=== PATIENT | female | born 1955 | race African-American/Black ===

== ENCOUNTER 2018-12-26 14:30 | Outpatient (CLI) | payer MEDICARE ==
--- NOTE | 2018-12-26 16:02 | MRI ---
MRI LUMBAR SPINE NONCONTRAST: HISTORY: Lumbar spinal stenosis. Low back pain with radiation down the right leg for years. Worsening symptoms . COMPARISON: None FINDINGS: Appropriate T1 marrow signal intensity of the lumbar vertebra. Lumbar spine vertebral body height is maintained. No significant STIR hyperintensity to suggest vertebral body edema or ligamentous injury. There does appear to be edematous change involving the right facet joint at L5-S1, likely due to mechanical stresses. There is a questionable incomplete right pars defect at L5 with abnormal edema involving th e facet and possibly pedicle. The overall AP diameter is narrowed secondary to congenitally foreshortened pedicles Appropriate signal intensity in the visualized paraspinal muscles and solid organs. Conus medullaris terminates at the inferior aspect of L1. T12-L1:Generalized disc bulge with mild central canal stenosis. Mild bilateral foraminal narrowing L1-L2:Adequate disc hydration. Generalized disc bulge, ligamentum flavum thickening, and facet hypert rophy result in mild stenosis. Mild bilateral neural foraminal narrowing. L2-L3:Adequate disc hydration. No significant loss of disc space height. Generalized disc bulge, liga mentum flavum thickening, and facet hypertrophy result in moderate central canal stenosis. Mild bilateral foraminal narrowing. L3-L4:Desiccation with mild loss of disc space height. Generalized disc bulge, ligamentum flavum thic kening, and facet hypertrophy result in moderate central canal stenosis. Right neural foramen is patent. Mild left foraminal narrowing. L4-L5:Desiccation with mild to moderate loss of disc space height. Generalized disc bulge, ligamentum flavum thickening, and facet hypertrophy result in mild central canal stenosis. Narrowing of both subarticular zones without obscuration of either traversing L5 nerve root. Moderate right and mild to moderate left foraminal narrowing. L5-S1:Adequate disc space height. However, there is disc desiccation. There is a generalized disc bul ge with a right subarticular component. There is ligamentum flavum thickening and facet hypertrophy. Moderate central canal stenosis. There is obscuration of the traversing right S1 nerve r oot secondary to disc material and to a lesser extent facet hypertrophy. Left subarticular zone is patent. There is severe right and moderate to severe left foraminal narrowing. IMPRESSION: 1. Degenerative changes of the lumbar spine as described above. There is mild right neural foraminal narrowing at L4-L5. 2. Moderate central canal stenosis at L2-L3 and L4-L5. There is obscuration of the traversing right S 1 nerve root secondary to disc material and facet hypertrophy with resultant narrowing of the right subarticular zone at L5-S1. Questionable pars defect on the right at L5. 3. Severe right and moderate to severe left foraminal narrowing at L5-S1. 4. Decreased AP diameter of the central spinal canal due to congenitally foreshortened pedicles Transcribed Date/Time: 12/26/2018 4:30 PM
--- NOTE | 2018-12-26 16:14 | RAD ---
XR Lumbar Spine Min 4 View: 12/26/2018 12:00 AM CLINICAL INDICATION: Spinal stenosis. Neurogenic claudication. COMPARISON: None. FINDINGS: Fracture:No fracture. Arthropathy:Moderate multilevel degenerative change of lumbar spine. Neutral lateral view reveals no significant listhesis. Flexion and extension lateral imaging demonstr ates no evidence of abnormal translational motion. Incidental findings: Scattered surgical clips. IMPRESSION: 1. Moderate degenerative change of lumbar spine. 2. No abnormal translational motion.
== END 2018-12-26 14:31 | disposition home or self-care (01) ==
LOC: BICMRI 14:30
PROVIDERS: ATTEND Nurse Practitioner Family
DX: M48.062 Spinal stenosis, lumbar region with neurogenic claudication (principal); M48.07 Spinal stenosis, lumbosacral region; M47.817 Spondylosis without myelopathy or radiculopathy, lumbosacral region; M47.816 Spondylosis without myelopathy or radiculopathy, lumbar region
CPT/HCPCS: 72110; 72148

== ENCOUNTER 2019-08-22 09:20 | Emergency (ER) | payer MEDICARE ==
[2019-08-22] MEDS ORDERED: Ketorolac Tromethamine 60 MG/2 ML VIAL ONE (12:07)
[2019-08-22] MEDS ORDERED: Cyclobenzaprine 10 MG TAB ONE (12:07)
[2019-08-22] MEDS ORDERED: Diazepam 5 MG TAB ONE (13:20)
== END 2019-08-22 13:30 | disposition home or self-care (01) ==
LOC: ERS 09:20
DX: M54.41 Lumbago with sciatica, right side (principal); G89.29 Other chronic pain; I10 Essential (primary) hypertension; F41.9 Anxiety disorder, unspecified
CPT/HCPCS: 96372; 99283; J1885

== ENCOUNTER 2019-11-13 10:00 | Inpatient (IN) | payer MEDICARE, OTHER ==
[2019-12-08 08:46] VITALS: BMI 37.2
[2019-12-11] MEDS ORDERED: Thrombin 5000 UNITS/5 ML VIAL ONE (06:12)
[2019-12-11] MEDS ORDERED: EPINEPHrine 1 MG/ML AMP ONE (06:12)
[2019-12-11] MEDS ORDERED: Bupivacaine PF 0.5% 30 ML VIAL ONE (06:12)
[2019-12-11] MEDS ORDERED: Levofloxacin 500 mg/D5W 100 ml Premix Bag ONE (06:17)
[2019-12-11] MEDS ORDERED: Clindamycin/D5W 900 mg/50 ml Premix Bag ONE (06:18)
[2019-12-11] MEDS ORDERED: Albumin 5% 500 ML ONE (06:41)
[2019-12-11] MEDS ORDERED: Fentanyl 250 MCG/5 ML VIAL ONE (06:41)
[2019-12-11] MEDS ORDERED: Ketamine 50 MG/ML (10ML VIAL) ONE (06:42)
[2019-12-11 11:08] LABS: Hemoglobin 9.8 g/dL (12.0-16.0); Platelet Count 175 thou/uL (130-400)
[2019-12-11] MEDS ORDERED: EPHEDRINE 25 MG/5 ML SYRINGE ONE (12:38)
[2019-12-11] MEDS ORDERED: PHENYLEPHRINE-NS 100 MCG/ML 10 ML SYRINGE ONE (12:38)
[2019-12-11] MEDS ORDERED: Glycopyrrolate 0.2 MG/ML 5 ML SYRINGE ONE (12:38)
[2019-12-11] MEDS ORDERED: Rocuronium Bromide 10 MG/ML (10ML VIAL) ONE (12:38)
[2019-12-11] MEDS ORDERED: Ondansetron PF 4 MG/2 ML Vial ONE (12:38)
[2019-12-11] MEDS ORDERED: PROPOFOL 200 MG/20 ML VIAL ONE (12:38)
[2019-12-11] MEDS ORDERED: Dexamethasone 20 MG/5 ML VIAL ONE (12:38)
[2019-12-11] MEDS ORDERED: Lidocaine 1% PF 5 ML VIAL ONE ×2 (12:38)
[2019-12-11] MEDS ORDERED: Ondansetron HCl/PF 4 MG/2 ML Vial IVP PRN (13:02)
[2019-12-11] MEDS ORDERED: Promethazine HCl 25 MG/ML VIAL IM PRN (13:02)
[2019-12-11] MEDS ORDERED: Promethazine HCl 25 MG/ML VIAL SLOW IVP PRN (13:02)
[2019-12-11] MEDS ORDERED: PACU-Morphine 4MG/ML VIAL SLOW IVP PRN (13:02)
[2019-12-11] MEDS ORDERED: HYDROmorphone 2 MG/ML VIAL SLOW IVP PRN (13:02)
[2019-12-11] MEDS ORDERED: Morphine Sulfate 2 MG/ML SYRINGE SLOW IVP PRN (13:02)
[2019-12-11] MEDS ORDERED: diphenhydrAMINE 25 MG CAP PO PRN (13:42)
[2019-12-11] MEDS ORDERED: Mag-Al 1200 mg/1200 mg/30 ML UDCUP PO PRN (13:42)
[2019-12-11] MEDS ORDERED: Promethazine 25 MG TAB PO PRN (13:42)
[2019-12-11] MEDS ORDERED: Prochlorperazine 10 MG/2 ML VIAL IM PRN (13:42)
[2019-12-11] MEDS ORDERED: tiZANidine HCl 4 MG TAB PO PRN (13:42)
[2019-12-11] MEDS ORDERED: Fentanyl 100 MCG/2 ML VIAL SLOW IVP PRN ×2 (13:52→13:53)
[2019-12-11] MEDS: Sodium Chloride 0.9% 1,000 ML IV SCH (15:23)
[2019-12-11] MEDS: Clindamycin/D5W 900 MG in Premix Bag 1 BAG IVPB SCH ×2 (15:24→22:17)
[2019-12-11] MEDS: Gabapentin 300 MG CAP PO SCH ×2 (15:27→21:21)
[2019-12-11] MEDS: Cyclobenzaprine 10 MG TAB PO PRN (15:27)
[2019-12-11] MEDS: Scopolamine 1.5 mg/72 hour Patch TD SCH (15:29)
--- NOTE | 2019-12-11 21:14 | OP ---
DATE OF PROCEDURE: 12/11/2019 [employer]ER: Ab Hurd PA-C PREOPERATIVE INDICATION: Treat pain, prevent neurological deterioration. PREOPERATIVE DIAGNOSES: Multilevel lumbar stenosis; far-lateral disk herniation, right L4-L5; far-lateral disk herniation with foraminal collapse at L5-S1; right L4 and L5 radiculopathies. POSTOPERATIVE DIAGNOSES: Multilevel lumbar stenosis; far-lateral disk herniation, right L4-L5; far-lateral disk herniation with foraminal collapse at L5-S1; right L4 and L5 radiculopathies. OPERATIVE PROCEDURE: Decompressive laminectomy, medial facetectomy, foraminotomy at L2-L3, L3-L4, L4-L5, L5-S1; far-lateral microdiskectomy, L4-L5; complete facetectomy, right L5-S1; transforaminal lumbar interbody arthrodesis; placement of intervertebral biomechanical device; pedicle screw and adam instrumentation, L5-S1; posterolateral arthrodesis, L5-S1; local morselized autograft, morselized allograft, operative microscope. PREOPERATIVE MEDICATION: Ancef 2 g IV. DRAIN NUMBER: 1. DRINK TYPE: 10-[place] Lenny. DESCRIPTION OF PROCEDURE: The patient was brought to the operating room. General endotracheal anesthesia was induced. The patient was positioned prone on the Blaze frame with the chest and hips supported by the appropriate attachments of the Blaze frame. A lateral fluoro radiograph was used to plan our incision. The lumbar skin was sterilely prepped and draped. We opened with a 10 blade knife and controlled bleeding with bipolar and monopolar cautery. We used monopolar cautery to dissect through subcutaneous tissues to thoracodorsal fascia. We incised the fascia in the midline and reflected the paraspinal muscles off the spinous process and lamina from L2-S1. A lateral fluoro radiograph to confirm the levels upon which we were operating. We then used an Adson rongeur to remove the spinous processes from L2 to the top of the sacrum. Kerrison rongeurs were used to fashion a laminectomy. In order to decompress the lateral recesses and foramina, we had performed medial facetectomies and foraminotomies at each of the levels. The L4 nerve root on the right side was compressed outside the foramen as was the L5 nerve root, both inside and lateral to the foramen. We brought the operative microscope in the field. Under microscopic magnification using microsurgical techniques, we carefully performed a far-lateral microdiskectomy at L4-L5. We widely open the foramen. We found a disk osteophyte complex on the ventral inferior surface of the L4 nerve root and reduced by performing microdiskectomy and using pushing curettes moved out of the way. Christianson ball probe could easily move from the foramen all the way to the paraspinal space without impingement after the decompression. We turned our attention to the L5-S1 facet. There performed a complete facetectomy in order to access the foramen. We decompressed the L5 nerve root by performing wide facetectomy and foraminotomy. We accessed the intervertebral space through the facetectomy defect. We incised the disk space and removed disk contents using curettes and rongeur. Using a rectangular bone rasp to be measured the height of the interspace to 11 mm, an 11 mm PEEK graft was brought into the field, which was loaded with demineralized bone matrix and morselized autograft. The autograft had been obtained during our laminectomies. When soft tissue was removed from the laminectomy bone, it was morselized into demineralized bone matrix to form our fusion substrate. The substrate in the center of the PEEK graft, the graft was advanced into the interspace under radiographic guidance to the appropriate depth. We turned our attention to pedicle screw instrumentation. Using bony anatomic landmarks, palpation of the medial portion of the pedicles and lateral fluoro radiographs as our guide, we chose entry points for pedicle screws. We drilled out our entry points and then used a bone awl to advance through the pedicles into the vertebral bodies. We tapped each trajectory with a threaded tap and then probed them. These were completely encased in bone. We placed pedicle screws at L5 and S1 bilaterally. We generated a 360-degree image set with our isocentric C-arm confirming adequate positioning of her pedicle screw instrumentation. We then brought into the field and put them into the screw heads. We tightened caps over the rods compressing across the interspace before final tightening. Using a torque/counter-torque mechanism, ensured adequate tightness of the caps. We decorticated the transverse processes of L5 and the sacral ala bilaterally. Over the decorticated bone, we left demineralized bone matrix and morselized autograft as a posterior lateral fusion substrate. This posterolateral fusion was done after copious amounts of irrigation in the posterolateral space. We irrigated the center of the wound once again. We treated the wound with vancomycin powder and tunneled the drain inferiorly through a separate stab incision. We closed the wound in anatomic layers with a drain. We applied sterile dressing. This was a clean case, no contamination. Job ID: [id number]
[2019-12-11] MEDS: Fentanyl 100 MCG/2 ML VIAL SLOW IVP PRN (21:20)
[2019-12-11] MEDS: traMADol HCl 50 MG TAB PO SCH (21:21)
[2019-12-11] MEDS: Potassium Chloride 10 MEQ TAB PO SCH (21:21)
[2019-12-11] MEDS: Furosemide 40 MG TAB PO SCH (21:21)
[2019-12-11] MEDS: clonazePAM 1 MG TAB PO PRN (21:27)
[2019-12-11] MEDS: Propranolol 10 MG TAB PO SCH (21:27)
[2019-12-12] MEDS: Sodium Chloride 0.9% 1,000 ML IV SCH ×3 (01:59→22:00)
[2019-12-12] MEDS: Fentanyl 100 MCG/2 ML VIAL SLOW IVP PRN ×5 (02:46→14:54)
[2019-12-12] MEDS: Cyclobenzaprine 10 MG TAB PO PRN ×2 (02:47→11:50)
[2019-12-12 05:19] LABS: #Lymphocytes 1.3 thou/uL (1.20-3.40); #Monocytes 0.6 thou/uL (0.11-0.59); #Neutrophils 7.5 thou/uL (1.40-6.50); %Basophils 0.3 % (0.0-1.0); %Lymphocytes 13.8 % (21.0-51.0); %Monocytes 6.6 % (0.0-10.0); %Neutrophils 79.3 % (42.0-75.0); Hemoglobin 10.1 g/dL (12.0-16.0); Mean Corpuscular HGB CONC 32.1 g/dL (32.0-36.0); Mean Corpuscular Hemoglobin 29.1 pg (27.0-31.0); Mean Corpuscular Volume 90.5 fL (78.0-98.0); Platelet Count 177 thou/uL (130-400); RBC Distribution Width 12.1 % (11.5-14.5); Red Blood Cell (RBC) Count 3.48 mill/uL (4.20-5.40); White Blood Cell (WBC) Count 9.5 thou/uL (4.8-10.8)
[2019-12-12] MEDS: Clindamycin/D5W 900 MG in Premix Bag 1 BAG IVPB SCH ×3 (06:02→22:45)
[2019-12-12] MEDS: Tamsulosin HCl 0.4 MG CAP PO SCH (06:02)
--- NOTE | 2019-12-12 07:00 | PRG ---
DATE OF SERVICE: 12/12/2019 Ms. Aleks Huang is one day out from long segment lumbar decompression with a L5-S1 TLIF for combination of severe canal stenosis with neurogenic claudication and some severe foraminal stenosis with radiculopathy. Since surgery, the right leg pain has gone. She is very happy about that. She has some positioning, soreness in her chest and elbows, and some irritation of the skin on her face. Otherwise, she feels fairly well. She anticipates need for inpatient rehabilitation because she lives at home. Overnight, her vital signs that I see recorded on the computer do not include a fever. Her blood pressures have been in the 90s to 120s. Her neurological examination is normal. We will consult Case Management to help with placement in inpatient rehab. She is going to complete physical therapy while she is here in the hospital. If she does reach safety and independence for activities of daily living, she could be discharged home, but otherwise inpatient rehabilitation stay might be a good idea. Job ID: [id number]
[2019-12-12] MEDS: Gabapentin 300 MG CAP PO SCH ×3 (09:45→21:54)
[2019-12-12] MEDS: Propranolol 10 MG TAB PO SCH ×2 (09:45→21:50)
[2019-12-12] MEDS: Potassium Chloride 10 MEQ TAB PO SCH ×2 (09:45→21:46)
[2019-12-12] MEDS: traMADol HCl 50 MG TAB PO SCH ×2 (09:46→21:47)
[2019-12-12] MEDS: Metolazone 5 MG TAB PO SCH (09:46)
[2019-12-12] MEDS: Furosemide 40 MG TAB PO SCH ×2 (09:46→21:52)
[2019-12-12] MEDS: Acetaminophen 325 MG TAB PO PRN ×2 (18:32→22:45)
[2019-12-12] MEDS: Fluticasone Propionate Nasal Spray 16 gm Bottle NASAL SCH (19:34)
[2019-12-12] MEDS: clonazePAM 1 MG TAB PO PRN (23:17)
[2019-12-13] MEDS: Clindamycin/D5W 900 MG in Premix Bag 1 BAG IVPB SCH ×2 (05:35→14:53)
[2019-12-13] MEDS: Tamsulosin HCl 0.4 MG CAP PO SCH (05:37)
[2019-12-13] MEDS: Sodium Chloride 0.9% 1,000 ML IV SCH ×2 (05:50→14:54)
[2019-12-13] MEDS: Propranolol 10 MG TAB PO SCH ×2 (08:34→21:17)
[2019-12-13] MEDS: Aspirin Chewable 81 MG TAB PO SCH (08:34)
[2019-12-13] MEDS: Stress 600 With Zinc 1 TAB PO SCH (08:34)
[2019-12-13] MEDS: Potassium Chloride 10 MEQ TAB PO SCH ×2 (08:34→21:16)
[2019-12-13] MEDS: Gabapentin 300 MG CAP PO SCH ×3 (08:34→21:14)
[2019-12-13] MEDS: Multivitamin W/ Minerals 1 TAB PO SCH (08:35)
[2019-12-13] MEDS: Cyclobenzaprine 10 MG TAB PO PRN (08:35)
[2019-12-13] MEDS: Furosemide 40 MG TAB PO SCH ×2 (08:36→14:53)
[2019-12-13] MEDS: traMADol HCl 50 MG TAB PO SCH ×2 (08:36→21:15)
[2019-12-13] MEDS: Ondansetron PF 4 MG/2 ML Vial IVP PRN (09:20)
--- NOTE | 2019-12-13 09:25 | PRG ---
DATE OF SERVICE: 12/13/2019 Ms. Aleks Huang is 2 days out from decompression fusion of lumbar spine. She had a reasonably good day yesterday, worked with physical therapy. This morning her temperatures reached a maximum of 100.8 degrees Fahrenheit. Her blood pressure has been in the 90s to 100. Ms. Aleks Huang has excellent strength in the lower extremities. For fever workup, we will get a urinalysis and ultrasound of lower extremities. We will encourage volume incentive spirometry 10 times per hour and mobilization. We are awaiting insurance approval for rehab placement, which can hopefully be done this weekend or on Sunday. Job ID: [id number]
[2019-12-13] MEDS: Fluticasone Propionate Nasal Spray 16 gm Bottle NASAL SCH (10:46)
--- NOTE | 2019-12-13 11:43 | ULT ---
ULTRASOUND DOPPLER DUPLEX VENOUS BILATERAL LOWER EXTREMITIES: DATE: 12/13/2019 HISTORY: 64-year-old female with bilateral lower extremity pain TECHNIQUE: Grayscale, color-flow, and spectral analysis, of major veins of bilateral lower extremities. FINDINGS: There is demonstration of blood flow with normal compressibility, of the bilateral common femoral, pr ofunda femoral, greater saphenous, femoral, popliteal, and posterior tibial, veins. IMPRESSION: Negative. No deep venous thrombosis of bilateral lower extremities.
[2019-12-13] MEDS: Acetaminophen 325 MG TAB PO PRN ×2 (12:24→21:15)
[2019-12-13] MEDS: traMADol HCl 50 MG TAB PO PRN (12:25)
[2019-12-13] MEDS: Milk Of Magnesia 30 ML UDCUP PO PRN (12:26)
[2019-12-13] MEDS: clonazePAM 1 MG TAB PO PRN (21:16)
[2019-12-14] MEDS: Sodium Chloride 0.9% 1,000 ML IV SCH ×3 (02:58→23:10)
[2019-12-14] MEDS: Acetaminophen 325 MG TAB PO PRN ×2 (06:23→17:08)
[2019-12-14] MEDS: traMADol HCl 50 MG TAB PO PRN (06:24)
[2019-12-14] MEDS: Tamsulosin HCl 0.4 MG CAP PO SCH (06:24)
[2019-12-14] MEDS: Fluticasone Propionate Nasal Spray 16 gm Bottle NASAL SCH (08:54)
[2019-12-14] MEDS: Multivitamin W/ Minerals 1 TAB PO SCH (08:55)
[2019-12-14] MEDS: Potassium Chloride 10 MEQ TAB PO SCH ×2 (08:55→20:12)
[2019-12-14] MEDS: Aspirin Chewable 81 MG TAB PO SCH (08:55)
[2019-12-14] MEDS: Stress 600 With Zinc 1 TAB PO SCH (08:55)
[2019-12-14] MEDS: Gabapentin 300 MG CAP PO SCH ×3 (08:55→20:12)
[2019-12-14] MEDS: Cyclobenzaprine 10 MG TAB PO PRN (08:56)
[2019-12-14] MEDS: Cyanocobalamin (Vitamin B-12) 1,000 MCG TAB PO SCH (08:56)
[2019-12-14] MEDS: Furosemide 40 MG TAB PO SCH ×2 (08:56→14:49)
[2019-12-14] MEDS: traMADol HCl 50 MG TAB PO SCH ×2 (08:57→20:11)
[2019-12-14] MEDS: Propranolol 10 MG TAB PO SCH ×2 (08:58→20:11)
--- NOTE | 2019-12-14 09:30 | PRG ---
DATE OF SERVICE: 12/14/2019 I saw Ms. Aleks Huang on rounds this morning. She has some electrical sensations in her legs with the pain that radiated from her back down to her feet. With walking it is gone. She is happy with the results of the operation thus far. She wants her shocking sensations to go away as well. Overnight, I see a high temperature of 100.1 degrees Fahrenheit. Her urinalysis is pending. On neurological examination, there is very good strength in the lower extremities. She is ambulatory. I believe Ms. Aleks Huang has good decompression of her lower lumbar nerve roots. Many of the chronically compressed roots are now waking and firing abnormally as they recover from chronic compression. Her motor strength is quite good and she is going to need some help to become independent for activities of daily living. Inpatient rehabilitation will provide her that service and once she has, she can be discharged from that facility home. Job ID: [id number]
[2019-12-14 11:09] LABS: #Eosinphils 0.3 thou/uL (0.0-0.7); #Lymphocytes 1.6 thou/uL (1.20-3.40); #Monocytes 0.5 thou/uL (0.11-0.59); #Neutrophils 4.6 thou/uL (1.40-6.50); %Basophils 0.3 % (0.0-1.0); %Eosinophils 4.5 % (0.0-10.0); %Lymphocytes 22.8 % (21.0-51.0); %Monocytes 7.6 % (0.0-10.0); %Neutrophils 64.8 % (42.0-75.0); Hemoglobin 9.8 g/dL (12.0-16.0); Mean Corpuscular HGB CONC 32.4 g/dL (32.0-36.0); Mean Corpuscular Hemoglobin 29.5 pg (27.0-31.0); Mean Corpuscular Volume 91.2 fL (78.0-98.0); Mean Platelet Volume 8.1 fL (7.4-10.4); Platelet Count 155 thou/uL (130-400); RBC Distribution Width 12.1 % (11.5-14.5); Red Blood Cell (RBC) Count 3.33 mill/uL (4.20-5.40); White Blood Cell (WBC) Count 7.1 thou/uL (4.8-10.8)
[2019-12-14] MEDS: Scopolamine 1.5 mg/72 hour Patch TD SCH (14:50)
[2019-12-14] MEDS: Milk Of Magnesia 30 ML UDCUP PO PRN (15:00)
[2019-12-14] MEDS: clonazePAM 1 MG TAB PO PRN (20:14)
[2019-12-15] MEDS: Cyclobenzaprine 10 MG TAB PO PRN (03:59)
[2019-12-15] MEDS: traMADol HCl 50 MG TAB PO PRN ×2 (04:00→14:13)
[2019-12-15] MEDS: Acetaminophen 325 MG TAB PO PRN ×3 (04:00→14:13)
[2019-12-15] MEDS: Ondansetron PF 4 MG/2 ML Vial IVP PRN (04:00)
[2019-12-15] MEDS: Tamsulosin HCl 0.4 MG CAP PO SCH (06:10)
--- NOTE | 2019-12-15 07:21 | PRG ---
DATE OF SERVICE: 12/15/2019 I saw Ms. Aleks Huang on rounds today. She is 4 days out from decompression and fusion of lumbar spine. She noticed yesterday while walking that the pain in her legs slightly more than the previous day. It is affecting the right leg, both in the groin and medial thigh, and some in the back of the leg, on the left side is the calf. She can still participate in her therapy and walk. She got out of bed, made it to the hallway once yesterday. Overnight, she has maximum temperature of 100.8 degrees Fahrenheit. Blood pressures have been in the 90s to 110s. While she is lying flat in bed, she has good strength in the hip flexors, quadriceps, anterior tib, EHL, and gastroc. She has sensation throughout. PLAN: My plan today is be more aggressive with therapy. I would like her walking 6 to 10 times in the hallway per day. As soon as inpatient rehabilitation can accept her, she can be moved. Job ID: [id number]
[2019-12-15] MEDS: Sodium Chloride 0.9% 1,000 ML IV SCH ×2 (08:24→14:30)
[2019-12-15] MEDS: Furosemide 40 MG TAB PO SCH ×2 (08:32→14:12)
[2019-12-15] MEDS: Metolazone 5 MG TAB PO SCH (08:33)
[2019-12-15] MEDS: Multivitamin W/ Minerals 1 TAB PO SCH (08:33)
[2019-12-15] MEDS: Aspirin Chewable 81 MG TAB PO SCH (08:33)
[2019-12-15] MEDS: Cyanocobalamin (Vitamin B-12) 1,000 MCG TAB PO SCH (08:33)
[2019-12-15] MEDS: Potassium Chloride 10 MEQ TAB PO SCH (08:33)
[2019-12-15] MEDS: Stress 600 With Zinc 1 TAB PO SCH (08:33)
[2019-12-15] MEDS: Gabapentin 300 MG CAP PO SCH ×2 (08:33→14:12)
[2019-12-15] MEDS: Propranolol 10 MG TAB PO SCH (08:33)
[2019-12-15] MEDS: traMADol HCl 50 MG TAB PO SCH (08:34)
[2019-12-15] MEDS: Fluticasone Propionate Nasal Spray 16 gm Bottle NASAL SCH (08:35)
[2019-12-15 10:22] LABS: Bilirubin Negative (Negative); Blood, Urine Negative (Negative); Clarity Turbid (Clear); Glucose, Urine (Dipstick) Normal (Negative); Leukocyte 500 Leu/uL (Negative); Nitrite Negative (Negative); Protein, Urine (Dipstick) Negative (Neg-Trace); Urobilinogen Normal mg/dL (Less than 2); WBC/HPF Greater than 50 HPF (0-3)
[2019-12-15 10:36] LABS: Bacteria/HPF 1+ HPF (None Seen)
[2019-12-15 12:56] LABS: Calcium 8.8 mg/dL (7.8-10.44); Chloride 86 mmol/L (98-107); Sodium 134 mmol/L (136-145)
[2019-12-15 12:57] LABS: Glucose 114 mg/dL (80-115)
[2019-12-15 13:00] LABS: Calc. Creatinine Clearance 105 mL/min (70-130); Estimated GFR-MDRD 87
[2019-12-15 13:01] LABS: BUN (Urea Nitrogen) 9 mg/dL (9.8-20.1)
[2019-12-15 13:09] LABS: Carbon Dioxide 34 mmol/L (23-31)
[2019-12-15 13:19] LABS: Potassium 2.7 mmol/L (3.5-5.1)
[2019-12-15 13:20] LABS: Anion Gap 17 mmol/L (10-20)
[2019-12-15] MEDS ORDERED: Potassium Citrate 10 MEQ TAB PO SCH ×2 (14:30→17:00)
[2019-12-15 16:06] VITALS: BP 96/61; TEMP 99.1
[2019-12-15] MEDS ORDERED: Potassium Chloride 20 MEQ TAB PO SCH (16:15)
[2019-12-15] MEDS ORDERED: Sulfameth/Trimethoprim DS 800-160mg TAB PO SCH (21:00)
--- NOTE | 2019-12-16 11:13 | DIS ---
DATE OF ADMISSION: 12/11/2019 DATE OF DISCHARGE: 12/15/2019 HOSPITAL COURSE: Ms. Fink is a 64-year-old female, four days out from decompression and fusion of her lumbar spine. Following her surgery, she was transitioned to the med/surg floor, where her pain has been well controlled with p.o. medications and she has tolerated a regular diet and has been voiding appropriately. She is otherwise doing well and ambulating with the assistance of physical therapy in the hallways and she feels like she is ready to go to inpatient rehabilitation. During the course of stay, her temperature has been up to 100.8 degrees Fahrenheit. Nurses tell me that this is because she uses a lot of blankets and that is not really her temperature. Blood pressures have been in the 90s to 110s. PHYSICAL EXAMINATION: GENERAL: Today, she is awake and alert, in no acute distress. EXTREMITIES: She has free active range of motion of all her extremities. No focal motor weaknesses. No reflex asymmetry. Her incision is clean, dry, and intact. Plan is to continue mobilizing and ambulating with therapy. She should be able to go to inpatient rehab today. CONDITION ON DISCHARGE: The patient had no emergencies. Condition was stable for discharge to inpatient rehab. MEDICATIONS: Home going medications were reviewed. FOLLOWUP: Followup arrangements made by our staff development coordinator in the clinic and call to the patient. ACTIVITIES: Restrictions were reviewed in person. Wound care showers are acceptable. The patient should pat the incision dry, but not submerge it under the surface of the body of water for 2 months. Job ID: [id number]
== END 2019-12-15 17:25 | disposition swing bed (61) | DRG 455 ==
LOC: EDSTATUS 11-17 10:00 → SURG A 12-11 05:45
PROVIDERS: ADMIT Neurological Surgery; ATTEND Neurological Surgery
PROC: 0SG30AJ Fusion of Lumbosacral Joint with Interbody Fusion Device, Posterior Approach, Anterior Column, Open Approach (ICD-10-PCS; principal; 2019-12-11)
PROC: 0SG0071 Fusion of Lumbar Vertebral Joint with Autologous Tissue Substitute, Posterior Approach, Posterior Column, Open Approach (ICD-10-PCS; 2019-12-11)
PROC: 0SB20ZZ Excision of Lumbar Vertebral Disc, Open Approach (ICD-10-PCS; 2019-12-11)
PROC: 01NB0ZZ Release Lumbar Nerve, Open Approach (ICD-10-PCS; 2019-12-11)
PROC: 01NR0ZZ Release Sacral Nerve, Open Approach (ICD-10-PCS; 2019-12-11)
DX: M51.16 Intervertebral disc disorders with radiculopathy, lumbar region (principal); M43.16 Spondylolisthesis, lumbar region; M48.062 Spinal stenosis, lumbar region with neurogenic claudication; Z11.59 Encounter for screening for other viral diseases; I10 Essential (primary) hypertension; R13.10 Dysphagia, unspecified; M19.90 Unspecified osteoarthritis, unspecified site; M81.0 Age-related osteoporosis without current pathological fracture; G47.00 Insomnia, unspecified; G89.29 Other chronic pain; J30.2 Other seasonal allergic rhinitis; E55.9 Vitamin D deficiency, unspecified; Z79.82 Long term (current) use of aspirin; Z79.899 Other long term (current) drug therapy; Z90.710 Acquired absence of both cervix and uterus; Z88.0 Allergy status to penicillin; Z88.5 Allergy status to narcotic agent
CPT/HCPCS: 36415; 36430; 76000; 80048; 81001; 85014; 85018; 85025; 85027; 85049; 85610; 85730; 86850; 86900; 86901; 87086; 87635; 93005; 93970; C1713; C1768; J0171; J1100; J1956; J2001; J2405; J2704; J3010; J3370; J3490; P9016; P9045; S0020; U0003

== ENCOUNTER 2019-12-08 06:06 | Outpatient (CLI) | payer MEDICARE, OTHER ==
[2019-12-08 10:41] LABS: Hemoglobin 12.6 g/dL (12.0-16.0); Mean Corpuscular HGB CONC 30.9 g/dL (32.0-36.0); Mean Corpuscular Volume 90.7 fL (78.0-98.0); Mean Platelet Volume 8.9 fL (7.4-10.4); Platelet Count 246 thou/uL (130-400); RBC Distribution Width 12.2 % (11.5-14.5); White Blood Cell (WBC) Count 4.5 thou/uL (4.8-10.8)
[2019-12-08 10:44] LABS: PTT 31.3 SEC (22.9-36.1)
[2019-12-08 10:45] LABS: Prothrombin Time 12.7 sec (12.0-14.7)
[2019-12-08 10:56] LABS: Anion Gap 14 mmol/L (10-20); BUN (Urea Nitrogen) 16 mg/dL (9.8-20.1); Calc. Creatinine Clearance 0 mL/min (70-130); Calcium 9.3 mg/dL (7.8-10.44); Carbon Dioxide 22 mmol/L (23-31); Chloride 106 mmol/L (98-107); Estimated GFR-MDRD 61; Glucose 80 mg/dL (80-115); Sodium 138 mmol/L (136-145)
--- NOTE | 2019-12-08 16:09 | EKG ---
Test Reason : Blood Pressure : / mmHG Vent. Rate : 059 BPM Atrial Rate : 059 BPM P-R Int : 152 ms QRS Dur : 092 ms QT Int : 452 ms P-R-T Axes : 205 060 045 degrees QTc Int : 447 ms Unusual P axis, possible ectopic atrial bradycardia Cannot rule out Anterior infarct , age undetermined Abnormal ECG Confirmed by DR. David CAMPOS MD ([id number]) on 12/08/2019 4:09:35 PM Referred By: STEVE Confirmed By:DR. David CAMPOS MD
[2019-12-08 18:11] LABS: SARS-CoV-2 MS2 Positive; SARS-CoV-2 N Gene Negative; SARS-CoV-2 S Gene Negative; SARS-CoV-2 orf1ab Negative
== END 2019-12-08 06:07 | disposition home or self-care (01) ==
LOC: LABBT 06:06
PROVIDERS: ATTEND Neurological Surgery
DX: Z01.818 Encounter for other preprocedural examination (principal); Z11.59 Encounter for screening for other viral diseases; M48.062 Spinal stenosis, lumbar region with neurogenic claudication; M43.16 Spondylolisthesis, lumbar region
CPT/HCPCS: 80048; 85027; 85610; 85730; 93005; U0003; 87635; 93010

== ENCOUNTER 2019-12-31 09:42 | Outpatient (CLI) | payer MEDICARE ==
--- NOTE | 2019-12-31 10:47 | RAD ---
EXAM: XR Lumbar Spine 2 Or 3 View PROVIDED CLINICAL HISTORY: Lumbar spondylolisthesis. Two-week follow-up after low back surgery. COMPARISON: 09/04/2019 FINDINGS: Bipedicular screws and posterior rods transfix the L5-S1 level with intradiscal prosthesis in place. Laminectomy defects are present extending from the L2-3 level to the L5-S1 level. No hardware complication is seen. Scattered osteophytes are seen in the lumbar spine. Narrowing of the L3-4 and L 4-5 intervertebral disc spaces is again seen. No fracture or subluxation is seen on this exam. Surgical clips overlie the right hemipelvis. Overlying back brace is in place. IMPRESSION: 1. Interval postoperative changes lumbar spine with evidence of posterior fusion at the L5-S1 level a nd laminectomy defects extending from the L2-3 level to the L5-S1 level. 2. Degenerative changes lumbar spine.
== END 2019-12-31 09:43 | disposition home or self-care (01) ==
LOC: TBSIIMAG 09:42
PROVIDERS: ATTEND Neurological Surgery
DX: M43.16 Spondylolisthesis, lumbar region (principal); M47.816 Spondylosis without myelopathy or radiculopathy, lumbar region; Z98.1 Arthrodesis status; Z98.890 Other specified postprocedural states
CPT/HCPCS: 72100

== ENCOUNTER 2020-02-08 23:17 | Emergency (ER) | payer MEDICARE ==
[2020-02-09] MEDS ORDERED: Acetaminophen 500 MG TAB ONE (00:05)
[2020-02-09] MEDS ORDERED: Metoclopramide HCl 10 MG/2 ML VIAL ONE (00:05)
[2020-02-09] MEDS ORDERED: diphenhydrAMINE 50 MG/ML VIAL ONE (00:05)
[2020-02-09 00:20] LABS: #Basophils 0.1 thou/uL (0.0-0.2); #Eosinphils 0.2 thou/uL (0.0-0.7); #Lymphocytes 1.2 thou/uL (1.20-3.40); #Monocytes 0.3 thou/uL (0.11-0.59); #Neutrophils 1.9 thou/uL (1.40-6.50); %Basophils 1.4 % (0.0-1.0); %Eosinophils 5.8 % (0.0-10.0); %Lymphocytes 31.5 % (21.0-51.0); %Monocytes 8.3 % (0.0-10.0); Hemoglobin 12.2 g/dL (12.0-16.0); Mean Corpuscular HGB CONC 32.2 g/dL (32.0-36.0); Mean Corpuscular Hemoglobin 28.2 pg (27.0-31.0); Mean Corpuscular Volume 87.7 fL (78.0-98.0); Mean Platelet Volume 8.9 fL (7.4-10.4); Platelet Count 216 thou/uL (130-400); RBC Distribution Width 12.3 % (11.5-14.5); Red Blood Cell (RBC) Count 4.31 mill/uL (4.20-5.40); White Blood Cell (WBC) Count 3.7 thou/uL (4.8-10.8)
[2020-02-09 00:41] LABS: ALT (SGPT) 31 U/L (8-55); AST (SGOT) 37 U/L (5-34); Albumin 3.9 g/dL (3.4-4.8); Alkaline Phosphatase 114 U/L (40-110); Anion Gap 11 mmol/L (10-20); BUN (Urea Nitrogen) 28 mg/dL (9.8-20.1); Bilirubin, Total 0.2 mg/dL (0.2-1.2); Calc. Creatinine Clearance 0 mL/min (70-130); Calcium 9.3 mg/dL (7.8-10.44); Carbon Dioxide 28 mmol/L (23-31); Chloride 103 mmol/L (98-107); Estimated GFR-MDRD 83; Globulin 4.4 g/dL (2.4-3.5); Glucose 78 mg/dL (80-115); Potassium 4.4 mmol/L (3.5-5.1); Protein, Total 8.3 g/dL (6.0-8.3); Sodium 138 mmol/L (136-145)
--- NOTE | 2020-02-09 07:43 | CT ---
PRELIMINARY REPORT/[facility]/EMERGENCY AFTER HOURS PROCEDURE: EXAM: CT Head Without Intravenous Contrast. CLINICAL HISTORY: DURAN off and on for the last few days. Bitemporal. Blurred vision. No numbness on arm s or legs. Had back surgery about a month ago. Was restarted on her bp meds. She thinks they are not working well enough, bp has been in the 160s systolic over the last few days. L arm pain yesterday, w / nausea. Resolved currently. TECHNIQUE: Axial computed tomography images of the head/brain without intravenous contrast. COMPARISON: None provided. FINDINGS: BRAIN: No acute intraparenchymal hemorrhage. No mass lesion. No CT evidence for acute territorial infarct. N o midline shift or extra-axial collection. VENTRICLES: No hydrocephalus. ORBITS: The orbits are unremarkable. SINUSES AND MASTOIDS: The paranasal sinuses and mastoid air cells are clear. SOFT TISSUES: No significant facial or scalp soft tissue swelling evident. No radiopaque foreign body is seen. BONES: No acute skull fracture. IMPRESSION: No acute intracranial abnormality. ELECTRONICALLY SIGNED BY: Juani Tran MD Feb 09, 2020 12:34:36 AM CDT This report is intended for review by the ordering physician only, in accordance of law. If you recei ve this report in error, please call [facility] at [phone]. FINAL REPORT EMERGENCY AFTER HOURS CT BRAIN WITHOUT CONTRAST: FINDINGS/IMPRESSION: I agree with the findings and impression given in the preliminary report per [facility] physici an. No evidence of acute intracranial abnormality. POS: TRISH
== END 2020-02-09 03:05 | disposition home or self-care (01) ==
LOC: ERS 23:17
DX: R51 Headache (principal); I10 Essential (primary) hypertension; F32.9 Major depressive disorder, single episode, unspecified; F41.9 Anxiety disorder, unspecified; Z79.82 Long term (current) use of aspirin; Z79.899 Other long term (current) drug therapy
CPT/HCPCS: 70450; 80053; 83735; 84484; 85025; 93005; 96361; 96365; 96366; 96375; J1200; J2765

== ENCOUNTER 2020-04-22 12:52 | Outpatient (CLI) | payer MEDICARE ==
--- NOTE | 2020-04-22 13:49 | ULT ---
RIGHT UPPER EXTREMITY VENOUS DOPPLER ULTRASOUND: HISTORY: Right upper extremity edema TECHNIQUE: Grayscale color-flow and spectral Doppler imaging of the deep venous systems of the right upper extre mity was performed FINDINGS: There is good flow, compression and normal spectral waveforms in the internal jugular, subclavian, ax illary, brachial, radial, ulnar, basilic and cephalic veins of the right upper extremity. IMPRESSION: No evidence of DVT in the right upper extremity.
== END 2020-04-22 12:53 | disposition home or self-care (01) ==
LOC: BICULT 12:52
PROVIDERS: ATTEND Family Medicine
DX: I89.0 Lymphedema, not elsewhere classified (principal); R60.0 Localized edema